=== PATIENT | male | born 2000 | race African-American/Black ===

== ENCOUNTER 2022-02-10 14:53 | Emergency (ER) | payer MEDICAID ==
[~2022-02-10] VITALS: Ht 177.8 cm; Wt 120.0 kg
[2022-02-10] MEDS ORDERED: HYDR-4622 TP (16:12)
[2022-02-10 16:55] VITALS: BP 134/69
== END 2022-02-10 16:57 | disposition home or self-care (01) ==
LOC: ER 14:53
DX: L21.9 Seborrheic dermatitis, unspecified (principal)
CPT/HCPCS: 99282